=== PATIENT | female | born 1990 | race Caucasian/White ===

== ENCOUNTER → 2017-04-20 | Outpatient (CLI) | payer BC ==
[~2017-04-20] MED LIST: IBUP600 PO; PREN0.01 PO
== END ==
LOC: CDED 10:42
PROVIDERS: ATTEND Obstetrics & Gynecology
DX: O24.419 Gestational diabetes mellitus in pregnancy, unspecified control (principal)
CPT/HCPCS: 97802

== ENCOUNTER 2017-07-01 06:15 | Inpatient (IN) | payer BC ==
[~2017-07-01] VITALS: Ht 162.6 cm; Wt 97.0 kg
[2017-07-01] VITALS (79 sets, daily range): BP systolic 97–150; BP diastolic 47–101; PULSE 53–147; RESP 16–18; TEMP 98–98.5
[2017-07-01] MEDS: LACTATED RINGER'S 1000 ML INJ 1,000 ML IV SCH ×3 (08:13→22:21)
[2017-07-01] MEDS ORDERED: LACTATED RINGER'S 1000 ML INJ 1,000 ML IV PRN (08:13)
[2017-07-01] MEDS ORDERED: OXYTOCIN 30 UNITS-500ML PREMIX 500 ML IV SCH ×2 (08:15→18:00)
[2017-07-01] MEDS ORDERED: LIDOCAINE HCL 1% 50 ML VIAL INFIL PRN (08:15)
[2017-07-01] MEDS ORDERED: CITRIC ACID-SODIUM CITRATE LIQ 30 ML UDC PO SCH (08:15)
[2017-07-01] MEDS ORDERED: LIDOCAINE HCL 1% 50 ML VIAL I-DERMAL PRN (08:15)
[2017-07-01] MEDS ORDERED: MINERAL OIL 10 ML VIAL TOPICAL PRN (08:15)
[2017-07-01] MEDS ORDERED: OXYTOCIN 30 UNITS-500ML PREMIX 500 ML IV ONE (08:15)
[2017-07-01] MEDS ORDERED: SODIUM CHLORID 0.9% 500 ML INJ 500 ML IV PRN (08:15)
[2017-07-01 08:22] LABS: AUTOMATED NEUTROPHIL # 5.7 TH/MM3 (1.8-7.7); BASOPHIL % 0.4 % (0.0-2.0); EOSINOPHIL # 0.1 TH/MM3 (0-0.4); EOSINOPHIL % 0.7 % (0.0-4.0); HEMATOCRIT 33.9 % (35.0-46.0); HEMO FLAGS DIFF FINAL; LYMPH % 25.4 % (9.0-44.0); LYMPHOCYTE # 2.1 TH/MM3 (1.0-4.8); MEAN CELL VOLUME 82.2 FL (80.0-100.0); MEAN CORPUSCULAR HEMOGLOBIN 27.1 PG (27.0-34.0); MEAN CORPUSCULAR HGB CONC 32.9 % (32.0-36.0); MONO % 6.4 % (0.0-8.0); NEUT % 67.1 % (16.0-70.0); PLATELET COUNT 187 TH/MM3 (150-450); RED BLOOD COUNT 4.12 MIL/MM3 (4.00-5.30); RED CELL DISTRIBUTION WIDTH 14.8 % (11.6-17.2); WHITE BLOOD COUNT 8.5 TH/MM3 (4.0-11.0)
[2017-07-01] MEDS ORDERED: SODIUM CHLOR 0.9% 1000 ML INJ 1,000 ML IV PRN (08:33)
[2017-07-01 08:53] LABS: BLOOD, URINE NEG (NEG); GLUCOSE,URINE NEG (NEG); KETONE, URINE NEG (NEG); NITRITE,URINE NEG (NEG); URINE COLOR LIGHT-YELLOW (YELLW/STRAW)
[2017-07-01 09:08] LABS: MUCUS URINE RARE /lpf (OCC)
[2017-07-01 09:09] LABS: BACTERIA, URINE RARE /hpf; COMMENT (UR) CULT NOT INDICATED; CULTURE IF INDICATED CULT NOT INDICATED; SQUAMOUS EPITHELIAL CELL URINE > 8 /hpf (0-5)
--- NOTE | 2017-07-01 11:07 | MH ---
cc: HOME LEE DATE OF ADMISSION 07/01/2017 DATE OF 1990 REASON FOR ADMISSION 39-week intrauterine with favorable Torres score. HISTORY OF PRESENT CONDITION The patient is a pleasant 27-year-old white female, 2, para 1-0-0-1, with LMP unclear but 6-1/2 week ultrasound showed EDC of 07/08/2017. She is currently 39 and 0/7 weeks with a favorable cervix. She has had no hypertension, diabetes or labor. She had an unremarkable term infant with us two years ago. Her weight gain has been appropriate. She currently weighs 215 pounds. Her cervix is 2, 50, -1. Her care was been with [place] [facility] since 6-/2 weeks. Her blood type is O+. Hemoglobin was 12.3. She is immune to [place] measles and chickenpox. Serology was negative. She declined genetic screening. Her group-B strep is negative. Her one-hour Glucola was 191. She did monitor her sugars throughout the and they were excellent with no need for medication. SOCIAL HISTORY She does not smoke, drink or use illicit drugs. She is a dialysis nurse. PHYSICAL EXAMINATION GENERAL: She is a well-developed, well-nourished female in no acute distress. VITAL SIGNS: She is afebrile with stable vital signs. LUNGS: Clear. HEART: Regular rate and rhythm. ABDOMEN: Fundus is 40 cm. Estimated weight is 7-1/2 pounds. PELVIC: Clinically adequate and proven. She is ruptured now artificially with clear fluid. Her strip is category 1. IMPRESSION AND PLAN Term intrauterine with gestational diabetes class A1 well controlled for 39-week induction. The risks, benefits, expectations and alternatives were discussed with her in the office and she is comfortable with this decision and proceeding and has signed consents. Home Lee MD PPC/BT /8:15 AM /10:47 AM
[2017-07-01] MEDS ORDERED: fentaNYL 2MCG-BUPIV 0.125% INJ 100 ML ONE (12:56)
[2017-07-01] MEDS ORDERED: ePHEDrine/NS 25 MG/5 ML SYRINGE ONE (12:57)
[2017-07-01] MEDS ORDERED: MEASLES, MUMPS, RUBELLA VACCINE 0.5 ML VIAL SQ ONE (16:00)
[2017-07-01] MEDS ORDERED: DIPHTH/TETANUS/ACEL PERTUSSIS (BOOSTER) 0.5 ML VIAL/PFS IM ONE (16:00)
--- NOTE | 2017-07-01 17:31 | PD.LABORPN ---
Subjective Subjective comfortable with epidural Objective Vital Signs Vital Signs Date Time Temp Pulse Resp B/P (MAP) Pulse Ox O2 Delivery O2 Flow Rate FiO2 07/01/17 15:57 16 07/01/17 15:55 83 07/01/17 15:50 81 07/01/17 15:46 73 127/72 (90) 07/01/17 15:45 77 07/01/17 15:40 77 07/01/17 15:35 73 07/01/17 15:31 72 123/60 (81) 07/01/17 15:30 16 07/01/17 15:30 80 07/01/17 15:25 90 07/01/17 15:20 88 07/01/17 15:15 87 128/63 (84) 07/01/17 15:15 82 07/01/17 15:10 92 07/01/17 15:05 80 07/01/17 15:00 79 125/73 (90) 07/01/17 15:00 16 07/01/17 15:00 91 07/01/17 14:55 73 07/01/17 14:45 100 07/01/17 14:45 70 117/101 (106) 07/01/17 14:40 84 07/01/17 14:35 96 07/01/17 14:30 93 07/01/17 14:30 73 16 116/67 (83) 07/01/17 14:25 84 07/01/17 14:21 77 119/71 (87) 07/01/17 14:20 83 07/01/17 14:19 73 118/76 (90) 07/01/17 14:16 108 97/47 (64) 07/01/17 14:15 16 07/01/17 14:15 93 07/01/17 14:10 100 07/01/17 14:05 78 07/01/17 14:00 83 103/57 (72) 07/01/17 14:00 78 07/01/17 14:00 16 07/01/17 13:55 86 102/54 (70) 07/01/17 13:55 77 07/01/17 13:50 65 111/55 (73) 07/01/17 13:45 89 07/01/17 13:45 86 107/49 (68) 07/01/17 13:45 16 07/01/17 13:40 85 118/59 (78) 07/01/17 13:40 67 07/01/17 13:37 75 07/01/17 13:37 123/69 (87) 07/01/17 13:30 88 07/01/17 13:30 67 07/01/17 13:30 16 07/01/17 13:30 120/91 (101) 07/01/17 13:25 75 07/01/17 13:20 78 07/01/17 13:16 80 117/70 (86) 07/01/17 13:15 16 07/01/17 13:15 68 07/01/17 13:10 74 07/01/17 13:05 72 07/01/17 13:01 71 120/64 (82) 07/01/17 13:00 63 07/01/17 13:00 16 07/01/17 12:55 57 07/01/17 12:54 53 128/72 (90) 07/01/17 11:57 16 07/01/17 11:15 16 07/01/17 11:14 88 126/79 (95) 07/01/17 10:10 16 07/01/17 09:42 56 120/68 (85) Objective complete strip category 1 begin pushing Lissette Guthrie MD Jul 01, 2017 17:31
--- NOTE | 2017-07-01 17:52 | PD.OB.DELI ---
Weeks gestation: 39 Gest age assessed date: Jul 01, 2017 Gest age assessed time: 17:51 Pt started active labor?: Yes Active labor start date: Jul 01, 2017 Active labor start time: 08:00 Medical induction of labor?: Yes Medical induction start date: Jul 01, 2017 Medical induction start time: 08:00 Artificial rupture of membrane: Yes Artificial ROM date: Jul 01, 2017 Artifical ROM time: 08:00 Episiotomy: None Vaginal Delivery: Normal Presentation: Occiput anterior Nuchal Cord: x1 Delayed cord clamping (45 sec): Yes : Male Delivery date: Jul 01, 2017 Delivery time: 17:52 One Minute : 8 Five Minute : 9 Placenta: Spontaneous delivery Laceration: 1 deg Repair: Chromic running Estimated blood loss: 300 Lissette Guthrie MD Jul 01, 2017 17:52
[2017-07-01] MEDS ORDERED: ACETAMINOPHEN 325 MG TAB PO PRN (18:00)
[2017-07-01] MEDS ORDERED: BENZOCAINE 20% TOPICAL SPRAY 60 ML CAN TOPICAL PRN (18:00)
[2017-07-01] MEDS ORDERED: SODIUM CHLORIDE 0.9% FLUSH 10 ML FLUSH IV FLUSH PRN (18:00)
[2017-07-01] MEDS ORDERED: ALUMINUM/MAGNESIUM/SIMETH 30 ML CUP PO PRN (18:00)
[2017-07-01] MEDS ORDERED: ONDANSETRON ODT 4 MG TAB PO PRN (18:00)
[2017-07-01] MEDS ORDERED: DOCUSATE SODIUM 50 MG/SENNA 8.6 MG TAB PO PRN (18:00)
[2017-07-01] MEDS ORDERED: ZOLPIDEM TARTRATE 5 MG TAB PO PRN (18:00)
[2017-07-01] MEDS: IBUPROFEN 800 MG TAB PO PRN (20:32)
[2017-07-01] MEDS: WITCH HAZEL 50%/GLYCERIN 12.5% 40 PAD JAR TOPICAL PRN (20:32)
[2017-07-01] MEDS ORDERED: SODIUM CHLORIDE 0.9% FLUSH 10 ML FLUSH IV FLUSH SCH (21:00)
[2017-07-02] MEDS: IBUPROFEN 800 MG TAB PO PRN ×2 (06:57→21:35)
[2017-07-02 09:00] VITALS: BP 121/64; PULSE 65; RESP 14; TEMP 98.1
--- NOTE | 2017-07-02 12:02 | HHI.OB ---
Subjective Post Day: 1 Remarks doing well with nursing no issues Objective Vitals/I&O Vital Signs Date Time Temp Pulse Resp B/P (MAP) Pulse Ox O2 Delivery O2 Flow Rate FiO2 07/02/17 09:00 65 07/02/17 09:00 121/64 (83) 07/02/17 09:00 98.1 14 07/01/17 20:57 98.4 75 18 118/72 (87) 07/01/17 19:45 100 130/88 (102) 07/01/17 19:30 93 126/66 (86) 07/01/17 19:15 98 119/70 (86) 07/01/17 19:01 102 122/87 (99) 07/01/17 18:54 16 07/01/17 18:45 105 123/81 (95) 07/01/17 18:40 16 07/01/17 18:30 112 124/63 (83) 07/01/17 18:21 16 07/01/17 18:15 105 118/73 (88) 07/01/17 18:01 115 104/82 (89) 07/01/17 18:00 98.0 16 07/01/17 17:53 120 07/01/17 17:53 139/91 (107) 07/01/17 17:46 110 07/01/17 17:46 150/68 (95) 07/01/17 17:30 98.5 16 07/01/17 17:30 147 117/95 (102) 07/01/17 17:15 117 124/81 (95) 07/01/17 17:00 16 07/01/17 16:55 105 07/01/17 16:50 100 07/01/17 16:45 95 124/74 (91) 07/01/17 16:45 94 07/01/17 16:40 96 07/01/17 16:35 93 07/01/17 16:30 104 07/01/17 16:30 91 135/80 (98) 07/01/17 16:30 98.5 16 07/01/17 16:25 95 07/01/17 16:20 92 07/01/17 16:15 97 137/75 (95) 07/01/17 16:15 102 07/01/17 15:57 16 07/01/17 15:55 83 07/01/17 15:50 81 07/01/17 15:46 73 127/72 (90) 07/01/17 15:45 77 07/01/17 15:40 77 07/01/17 15:35 73 07/01/17 15:31 72 123/60 (81) 07/01/17 15:30 16 07/01/17 15:30 80 07/01/17 15:25 90 07/01/17 15:20 88 07/01/17 15:15 87 128/63 (84) 07/01/17 15:15 82 07/01/17 15:10 92 07/01/17 15:05 80 07/01/17 15:00 79 125/73 (90) 07/01/17 15:00 16 07/01/17 15:00 91 07/01/17 14:55 73 07/01/17 14:45 100 07/01/17 14:45 70 117/101 (106) 07/01/17 14:40 84 07/01/17 14:35 96 07/01/17 14:30 93 07/01/17 14:30 73 16 116/67 (83) 07/01/17 14:25 84 07/01/17 14:21 77 119/71 (87) 07/01/17 14:20 83 07/01/17 14:19 73 118/76 (90) 07/01/17 14:16 108 97/47 (64) 07/01/17 14:15 16 07/01/17 14:15 93 07/01/17 14:10 100 07/01/17 14:05 78 07/01/17 14:00 83 103/57 (72) 07/01/17 14:00 78 07/01/17 14:00 16 07/01/17 13:55 86 102/54 (70) 07/01/17 13:55 77 07/01/17 13:50 65 111/55 (73) 07/01/17 13:45 89 07/01/17 13:45 86 107/49 (68) 07/01/17 13:45 16 07/01/17 13:40 85 118/59 (78) 07/01/17 13:40 67 07/01/17 13:37 75 07/01/17 13:37 123/69 (87) 07/01/17 13:30 88 07/01/17 13:30 67 07/01/17 13:30 16 07/01/17 13:30 120/91 (101) 07/01/17 13:25 75 07/01/17 13:20 78 07/01/17 13:16 80 117/70 (86) 07/01/17 13:15 16 07/01/17 13:15 68 07/01/17 13:10 74 07/01/17 13:05 72 07/01/17 13:01 71 120/64 (82) 07/01/17 13:00 63 07/01/17 13:00 16 07/01/17 12:55 57 07/01/17 12:54 53 128/72 (90) Objective Remarks GENERAL: Well-nourished, well-developed patient. CARDIOVASCULAR: Regular rate and rhythm without murmurs, gallops, or rubs. RESPIRATORY: Breath sounds equal bilaterally. No accessory muscle use. ABDOMEN/GI: Abdomen soft, non-tender. Fundus: Firm, non-tender at umbilicus. GENITOURINARY: Light to moderate bleeding. EXTREMITIES: No cyanosis or edema, non-tender, without signs of DVT. Medications and IVs Current Medications Medications (Trade) Dose Ordered Sig/Rg Route Start Time Stop Time Status Last Admin Lactated Ringer's 1,000 ml @ 125 mls/hr Q8H IV 07/01/17 08:13 07/01/17 08:13 Lactated Ringer's 1,000 ml @ 3,000 mls/hr Q20M PRN IV 07/01/17 08:13 Sodium Chloride 1,000 ml @ 100 mls/hr Q10H PRN IV 07/01/17 08:33 (Xylocaine 1% Inj (50 ml)) 0.1 ml UNSCH X1 PRN I-DERMAL 07/01/17 08:15 07/04/17 08:14 (Bicitra Liq) 30 ml TRANSPORTER RADIOLOGY PO 07/01/17 08:15 07/05/17 08:14 (fentaNYL INJ) 50 mcg Q1H PRN IV PUSH 07/01/17 08:15 (fentaNYL INJ) 100 mcg Q1H PRN IV PUSH 07/01/17 08:15 (Xylocaine 1% Inj (50 ml)) 10 ml UNSCH X1 PRN INFIL 07/01/17 08:15 07/03/17 08:14 (Muri-Lube Oil) 10 ml UNSCH PRN TOPICAL 07/01/17 08:15 Oxytocin 500 ml @ 0 mls/hr TITRATE IV 07/01/17 08:15 07/01/17 09:10 (NS Flush) 2 ml BID IV FLUSH 07/01/17 21:00 (NS Flush) 2 ml UNSCH PRN IV FLUSH 07/01/17 18:00 (Tylenol) 650 mg Q4H PRN PO 07/01/17 18:00 (Motrin) 800 mg Q8H PRN PO 07/01/17 18:00 07/02/17 06:57 (Americaine 20% Top Spr) 1 spray Q4H PRN TOPICAL 07/01/17 18:00 (Tucks Pads) 1 applic QID PRN TOPICAL 07/01/17 18:00 07/01/17 20:32 (Alma-Colace) 2 tab Q12H PRN PO 07/01/17 18:00 (Ambien) 5 mg HS PRN PO 07/01/17 18:00 (Mag-Al Plus Susp Liq) 15 ml Q8H PRN PO 07/01/17 18:00 (Zofran Odt) 4 mg Q6H PRN PO 07/01/17 18:00 Assessment/Plan Assessment and Plan normal PPD 1 home in am PPD2 Lissette Guthrie MD Jul 02, 2017 12:02
--- NOTE | 2017-07-02 12:04 | HHI.DCPOC ---
Discharge Care Plan Report Symptoms to Your Doctor -Temperature above 100.5 degrees -Redness, of incision or excessive or foul smelling drainage -Unusual pain or calf pain -Increased vaginal bleeding -Painful or difficulty urinating -Feelings of extreme sadness or anxiety after 2 weeks Goals to Promote Your Health * To prevent worsening of your condition and complications * To maintain your health at the optimal level Directions to Meet Your Goals Take your medications as prescribed Follow your dietary instruction Follow activity as directed Ensure plenty of rest for recovery Drink fluids for hydration Keep your appointments as scheduled Take your immunizations and boosters as scheduled If your symptoms worsen call your PCP, if no PCP go to Urgent Care Center or Emergency Room Smoking is Dangerous to Your Health. Avoid second hand smoke Call the 24-hour crisis hotline for domestic abuse at Lissette Guthrie MD Jul 02, 2017 12:03
[2017-07-02] MEDS: WITCH HAZEL 50%/GLYCERIN 12.5% 40 PAD JAR TOPICAL PRN (15:44)
[2017-07-02 20:00] VITALS: BP 141/88; PULSE 72; RESP 18; TEMP 98.7
[2017-07-03 08:00] VITALS: BP 114/65; PULSE 18; PULSE 59; RESP 18; TEMP 98.2
--- NOTE | 2017-07-03 08:05 | HHI.OB ---
Subjective Post Day: 2 Remarks Doing well and ready for discharge circ done yesterday Objective Vitals/I&O Vital Signs Date Time Temp Pulse Resp B/P (MAP) Pulse Ox O2 Delivery O2 Flow Rate FiO2 07/02/17 20:00 98.7 07/02/17 20:00 72 18 141/88 (105) 07/02/17 09:00 65 07/02/17 09:00 121/64 (83) 07/02/17 09:00 98.1 14 Objective Remarks GENERAL: Well-nourished, well-developed patient. CARDIOVASCULAR: Regular rate and rhythm without murmurs, gallops, or rubs. RESPIRATORY: Breath sounds equal bilaterally. No accessory muscle use. ABDOMEN/GI: Abdomen soft, non-tender. Fundus: Firm, non-tender at umbilicus. GENITOURINARY: Light to moderate bleeding. EXTREMITIES: No cyanosis or edema, non-tender, without signs of DVT. Medications and IVs Current Medications Medications (Trade) Dose Ordered Sig/Rg Route Start Time Stop Time Status Last Admin Lactated Ringer's 1,000 ml @ 125 mls/hr Q8H IV 07/01/17 08:13 07/01/17 08:13 Lactated Ringer's 1,000 ml @ 3,000 mls/hr Q20M PRN IV 07/01/17 08:13 Sodium Chloride 1,000 ml @ 100 mls/hr Q10H PRN IV 07/01/17 08:33 (Xylocaine 1% Inj (50 ml)) 0.1 ml UNSCH X1 PRN I-DERMAL 07/01/17 08:15 07/04/17 08:14 (Bicitra Liq) 30 ml MILK [employer]OUTE [employer]PER[employer]OR PO 07/01/17 08:15 07/05/17 08:14 (fentaNYL INJ) 50 mcg Q1H PRN IV PUSH 07/01/17 08:15 (fentaNYL INJ) 100 mcg Q1H PRN IV PUSH 07/01/17 08:15 (Xylocaine 1% Inj (50 ml)) 10 ml UNSCH X1 PRN INFIL 07/01/17 08:15 07/03/17 08:14 (Muri-Lube Oil) 10 ml UNSCH PRN TOPICAL 07/01/17 08:15 Oxytocin 500 ml @ 0 mls/hr TITRATE IV 07/01/17 08:15 07/01/17 09:10 (NS Flush) 2 ml BID IV FLUSH 07/01/17 21:00 (NS Flush) 2 ml UNSCH PRN IV FLUSH 07/01/17 18:00 (Tylenol) 650 mg Q4H PRN PO 07/01/17 18:00 (Motrin) 800 mg Q8H PRN PO 07/01/17 18:00 07/02/17 21:35 (Americaine 20% Top Spr) 1 spray Q4H PRN TOPICAL 07/01/17 18:00 07/02/17 15:44 (Tucks Pads) 1 applic QID PRN TOPICAL 07/01/17 18:00 07/02/17 15:44 (Alma-Colace) 2 tab Q12H PRN PO 07/01/17 18:00 (Ambien) 5 mg HS PRN PO 07/01/17 18:00 (Mag-Al Plus Susp Liq) 15 ml Q8H PRN PO 07/01/17 18:00 (Zofran Odt) 4 mg Q6H PRN PO 07/01/17 18:00 Assessment/Plan Assessment and Plan normal PPD 1 home in am PPD2 07/03/17 doing great ready for discharge Lissette Guthrie MD Jul 03, 2017 08:05
--- NOTE | 2017-07-03 08:06 | HHI.DCPOC ---
Discharge Care Plan Report Symptoms to Your Doctor -Temperature above 100.5 degrees -Redness, of incision or excessive or foul smelling drainage -Unusual pain or calf pain -Increased vaginal bleeding -Painful or difficulty urinating -Feelings of extreme sadness or anxiety after 2 weeks Goals to Promote Your Health * To prevent worsening of your condition and complications * To maintain your health at the optimal level Directions to Meet Your Goals Take your medications as prescribed Follow your dietary instruction Follow activity as directed Ensure plenty of rest for recovery Drink fluids for hydration Keep your appointments as scheduled Take your immunizations and boosters as scheduled If your symptoms worsen call your PCP, if no PCP go to Urgent Care Center or Emergency Room Smoking is Dangerous to Your Health. Avoid second hand smoke Call the 24-hour crisis hotline for domestic abuse at Lissette Guthrie MD Jul 03, 2017 08:06
== END 2017-07-03 14:40 | disposition home or self-care (01) | DRG 775 ==
LOC: H2EB 06:15 → H1EA 20:35
PROVIDERS: ADMIT Obstetrics & Gynecology; ATTEND Obstetrics & Gynecology
PROC: 10E0XZZ Delivery of Products of Conception, External Approach (ICD-10-PCS; principal; 2017-07-01)
PROC: 0HQ9XZZ Repair Perineum Skin, External Approach (ICD-10-PCS; 2017-07-01)
PROC: 10907ZC Drainage of Amniotic Fluid, Therapeutic from Products of Conception, Via Natural or Artificial Opening (ICD-10-PCS; 2017-07-01)
PROC: 3E0P3VZ Introduction of Hormone into Female Reproductive, Percutaneous Approach (ICD-10-PCS; 2017-07-01)
PROC: 3E0R3BZ Introduction of Anesthetic Agent into Spinal Canal, Percutaneous Approach (ICD-10-PCS; 2017-07-01)
PROC: 00HU33Z Insertion of Infusion Device into Spinal Canal, Percutaneous Approach (ICD-10-PCS; 2017-07-01)
DX: O24.419 Gestational diabetes mellitus in pregnancy, unspecified control (principal); O70.0 First degree perineal laceration during delivery; Z37.0 Single live birth; Z3A.39 39 weeks gestation of pregnancy
CPT/HCPCS: 59025; 80307; 81001; 85025; 86900; 86901; J2590; J7120